=== PATIENT | male | born 1965 | race Caucasian/White ===

== ENCOUNTER 2017-05-25 15:26 | Emergency (ER) | payer BC, OTHER ==
--- NOTE | 2017-05-25 15:50 | ED Physician Documentation ---
PD HPI LOWER EXT INJURY - Stated complaint Stated Complaint: LEFT FOOT INJ - Chief complaint Chief Complaint: Ext Problem - History obtained from History obtained from: Patient - History of Present Illness PD HPI LOW EXT INJURY LOCATION: Other (For about 1 month, after running in boots developed left heel pain, indolent and constant since. Worse today with a pop while running after his dogs.) Review of Systems Constitutional: reports: Reviewed and negative Nose: reports: Reviewed and negative Cardiac: reports: Reviewed and negative Respiratory: reports: Reviewed and negative PD PAST MEDICAL HISTORY - Past Medical History Past Medical History: Yes Cardiovascular: Hypertension, High cholesterol, Deep vein thrombosis, Pulmonary embolism - Past Surgical History Past Surgical History: Yes Ortho: ACL reconstruction - Present Medications Home Medications: Ambulatory Orders Medication Instructions Recorded Confirmed Coversyl Turkish Blood Pressure 0 mg DAILY 05/25/17 Med Fenofibrate 0 mg DAILY 05/25/17 05/25/17 Meloxicam [Mobic] 7.5 mg PO BIDWM PRN #15 tablet 05/25/17 Omeprazole 20 mg PO DAILY #14 tablet. 05/25/17 Rivaroxaban [Xarelto] 0 mg DAILY 05/25/17 05/25/17 - Allergies Allergies/Adverse Reactions: Allergies Allergy/AdvReac Type Severity Reaction Status Date / Time No Known Drug Allergies Allergy Verified 05/25/17 15:32 - Social History Does the pt smoke?: No Smoking Status: Never smoker Does the pt drink ETOH?: Yes PD ED PE NORMAL - Vitals Vital signs reviewed: Yes (Htn) - General General: Alert and oriented X 3, No acute distress - Extremities Extremities: Other (Mild TTP Left anterior Plantar calcaneus and a lot of pain with plantar fascial stretching but no other bony tenderness.) - Neuro Neuro: Alert and oriented X 3, Normal speech - Psych Psych: Normal mood, Normal affect Results - Vitals Vitals: Vital Signs - 24 hr 05/25/17 15:31 Temperature 36.6 C Heart Rate 95 Respiratory 18 Rate Blood Pressure 173/109 H O2 Saturation 97 Oxygen O2 Source Room air Departure - Departure Disposition: 01 Home, Self Care Clinical Impression: Plantar fasciitis of left foot Condition: Good Record reviewed to determine appropriate education?: Yes Instructions: Plantar Fasciitis Prescriptions: Meloxicam [Mobic] 7.5 mg PO BIDWM PRN #15 tablet PRN Reason: Pain Omeprazole 20 mg PO DAILY #14 tablet. Comments: Call your doctor to arrange a follow-up appointment, make the next available appointment. In the interim, return anytime if worse or if new symptoms develop. Your blood pressure was elevated today on check into the emergency department. This does not mean that you have hypertension, it is a common phenomenon to come to the emergency department and have elevated blood pressure. I recommend that she see her primary care physician within the week to have it rechecked when you are feeling better.
[2017-05-25 15:53] VITALS: BP 173/109
== END 2017-05-25 16:25 | disposition home or self-care (01) ==
LOC: ED 15:26
DX: M72.2 Plantar fascial fibromatosis (principal); I10 Essential (primary) hypertension; E78.00 Pure hypercholesterolemia, unspecified; Z86.711 Personal history of pulmonary embolism; Z86.718 Personal history of other venous thrombosis and embolism; Z79.01 Long term (current) use of anticoagulants
CPT/HCPCS: 99283